=== PATIENT | male | born 1955 | race Caucasian/White ===

== ENCOUNTER 2019-11-01 12:47 | Day surgery (SDC) | payer BC ==
[2019-10-28 14:07] VITALS: BMI 28.5
[~2019-11-01 12:47] MED LIST: LACTATED RINGERS 1,000 ML IV SCH; SODIUM CHLORIDE 0.9% 1,000 ML IV SCH
[2019-11-01] MEDS ORDERED: SODIUM CHLORIDE 0.9% 1,000 ML IV ONE (13:32)
[2019-11-01] MEDS ORDERED: MIDAZOLAM 2 MG/2 ML VIAL ONE (14:47)
[2019-11-01] MEDS ORDERED: HEPARIN SODIUM,PORCINE 10,000 UNIT/ML 1 ML VIAL ONE (14:47)
[2019-11-01] MEDS ORDERED: PROPOFOL 10 MG/ML 20 ML VIAL IV ONE (14:47)
[2019-11-01] MEDS ORDERED: LIDOCAINE 1% INJ 10MG/ML (20 ML MDV) ONE ×2 (14:47→15:04)
[2019-11-01] MEDS ORDERED: PHENYLEPHRINE-0.9% NACL SYG 1 MG/10 ML SYRINGE ONE (14:47)
[2019-11-01] MEDS ORDERED: ISOPROTERENOL 250 MCG/1.25 ML SYR IV ONE (14:47)
[2019-11-01] MEDS ORDERED: SUCCINYLCHOLINE CHLORIDE 100 MG/5 ML SYR IV ONE (14:47)
[2019-11-01] MEDS ORDERED: fentaNYL (PF) 50 MCG/ML 2 ML AMP ONE (14:47)
[2019-11-01] MEDS ORDERED: HYDROmorphone (PF) 1 MG/ML ONE (14:47)
[2019-11-01] MEDS ORDERED: PROTAMINE SULFATE 10 MG/ML 5 ML VIAL IV ONE (14:47)
[2019-11-01] MEDS ORDERED: LIDOCAINE 1% INJ 10MG/ML (20 ML MDV) SQ ONE (15:33)
[2019-11-01] MEDS ORDERED: HEPARIN SOD,PORK IN 0.45% NACL 25,000 UNIT in 0.45% NACL 1 250ML.BAG IV ONE (15:45)
[2019-11-01] MEDS ORDERED: IOPAMIDOL-370 125ML BTL INJ ONE (16:38)
[2019-11-01] MEDS ORDERED: SODIUM CHLORIDE 0.9% 500 ML 500 ML IV ONE (17:00)
[2019-11-01] MEDS ORDERED: HYDROcodone/APAP 5-325MG 1 EACH TAB PO PRN (17:11)
[2019-11-01] MEDS ORDERED: ACETAMINOPHEN TAB 325 MG TAB PO PRN (17:11)
--- NOTE | 2019-11-01 17:28 | P.PCN ---
Preoperative Diagnosis: Diagnosis Atrial fibrillation, symptomatic, refractory to therapy Paroxysmal Failed sotalol Bradycardia with sotalol Result No left atrial appendage mass seen on intracardiac echo Successful pulmonary vein isolation of all veins using cryo-ablation Complete entrance block in all 4 veins confirmed No evidence for phrenic nerve injury Esophageal deflection YES Electrical cardioversion with a synchronized shock across the chest YES Procedure details Patient was brought to the EP lab in a fasting state. Written informed consent was obtained prior to the procedure. Procedure performed under general anesthesia After initial muscle relaxant use, muscle relaxants were not given thereafter in order to assess phrenic nerve during procedure. Patient prepped and draped as per protocol Full cryo-set up with standard preparation of the cryoablation tools done. Femoral Venous access obtained on the right and left groins Venous and arterial Sheaths placed. Diagnostic catheters for the high right atrium, phrenic nerve stimulation and pacing, His bundle, RV and coronary sinus placed Intracardiac echo catheter placed. Long sheath placed in the right atrium Left and right transseptal catheterization performed under intracardiac echo guidance. Intravenous heparin with aCT above 300 Later, catheter positioning and balloon positioning in the left atrium, under intracardiac echo guidance Diagnostic EP study with Drug infusion with high dose Isuprel Coronary sinus pacing and recording Baseline measurements: Sinus cycle length 794 ms, TN interval 142 ms, QRS 112 ms, QT interval 380 ms AH 89 ms and HV 45 ms Atrial pacing performed from the high right atrium and the coronary sinus RV pacing VA Wenckebach block 390 ms Burst stimulation from the high right atrium Burst stimulation from the coronary sinus, occasional atrial triplet induced no atrial fibrillation, following PVI Extra stimulation performed on Isuprel Transseptal catheterization performed RA pressure 12/5/9 LA pressure 16/4/10 Transseptal catheterization performed with standard sheath. The cryoablation sheath was then placed with an over the wire exchange without any acute complications. All 4 pulmonary veins were isolated in the following sequence: Left superior followed by left inferior followed by right superior followed by right inferior The cryo-ablation balloon was placed at the os of each vein 1.5 mL of IV dye was injected to confirm an occluded vein Goal during cryoablation was to achieve complete occlusion of the pulmonary vei n, achieve -30 degrees C at 30 seconds and achieve -40 degrees C at 60 seconds and a time to effect of less than 60-90 seconds, . If not the balloon was repositioned to obtain this result After completion of Cryoblation with durations from 180-240 seconds, entrance block was confirmed with the Attain circular catheter in a roving fashion around the antrum of the pulmonary veins Phrenic nerve pacing was performed from the SVC, right innominate vein area and diaphragm voltage was monitored. Diaphragmatic contractions were also monitored manually for strength of contraction. Parameter goals for each cryo freeze Complete occlusion of the appropriate vein -30 degrees C by 30 seconds -40 degrees C by 60 seconds Minimum between minus 40-55 degrees C Thaw time greater than 10 seconds Balloon visualized by intracardiac echo The esophagus was intubated. Esophageal Temperature monitoring with a CIRCA catheter formed. Esophageal deflection for hypothermia of the esophagus below 30 degrees C Left superior pulmonary vein Complete isolation, entrance block Left inferior pulmonary vein Complete isolation, entrance block Right superior pulmonary vein, during phrenic nerve pacing Complete isolation, entrance block Right inferior pulmonary vein, during phrenic nerve pacing Complete isolation, entrance block At the end of the procedure the Achieve catheter was once again used to check for entrance block Phrenic nerve stimulation was performed to confirm diaphragmatic stimulation the end of the procedure Cine fluoroscopy was performed at the very end of the procedure to confirm mov ement of both diaphragms with inspiration and expiration At the end of the procedure the patient was extubated Heparin was reversed Venous sheaths were removed and hemostasis assured Procedures performed (PVI - CRYO Ablation) Diagnostic EP study CS pacing and recording Left and right transseptal catheterization Catheter the mapping of the tachycardia (NOT 3D mapping) Intracardiac echocardiography Pulmonary vein isolation with transseptal and comprehensive EPS, [id number] Drug Infusion [id number]
--- NOTE | 2019-11-01 17:30 | P.PRLE ---
RE: Arnol Gonzalez Dear Dr. Keyla Ambrose underwent cryoablation of the pulmonary veins successfully. All 4 pulmonary veins were completely isolated Thereafter a detailed EP study is performed on high dose Isuprel No sustained or nonsustained atrial fibrillation induced He has a history of sick sinus syndrome and therefore I'm reducing the dose of sotalol to 40 mg twice daily and hopefully in the next 6-8 weeks. At completely He should continue ELIQUIS for a minimum of 3 months If he does have prediabetes or diabetes and mild CAD then in view of his age his GREGORY VASC score is at least 2 and in that case he should continue ELIQUIS lifelong Thank you for entrusting me with the care of the patient Warm regards Sincerely Vignesh Porter
[2019-11-01] MEDS ORDERED: HYDROmorphone 0.5 MG/0.5 ML SYRINGE IVP ONE (18:05)
[2019-11-01] MEDS: ACETAMINOPHEN IV (For NPO) 1,000 MG in EMPTY BAG 1 BAG IVPB ONE ×2 (18:05→18:20)
[2019-11-01] MEDS: SOTALOL 80 MG TAB PO SCH (20:08)
[2019-11-01] MEDS: APIXABAN 5 MG TAB PO SCH (20:08)
[2019-11-02 08:09] VITALS: BP 131/82; PULSE 70; RESP 18; TEMP 97.6
[2019-11-02] MEDS: SOTALOL 80 MG TAB PO SCH (08:10)
[2019-11-02] MEDS: APIXABAN 5 MG TAB PO SCH (08:10)
[2019-11-02 08:17] LABS: ALT 29 U/L (4-49); AST 73 U/L (17-59); African American GFR (CKD) >90 (>60 ml/min/1.73 sqM); Albumin 3.6 g/dL (3.5-5.0); Alkaline Phosphatase 45 U/L (38-126); Anion Gap 5 mmol/L; Blood Urea Nitrogen 18 mg/dL (9-20); Calcium 8.5 mg/dL (8.4-10.2); Carbon Dioxide 24 mmol/L (22-30); Chloride 105 mmol/L (98-107); Cholesterol 122 mg/dL (<200); Glucose 120 mg/dL (74-99); HDL Cholesterol 39 mg/dL (40-60); LDL Cholesterol,Calculated 60 mg/dL (0-99); Non-African American GFR(CKD) >90 (>60 ml/min/1.73 sqM); Potassium 4.3 mmol/L (3.5-5.1); Sodium 134 mmol/L (137-145); Total Bilirubin 1.2 mg/dL (0.2-1.3); Triglycerides 116 mg/dL (<150)
[2019-11-02] MEDS ORDERED: ATORVASTATIN 10 MG TAB PO SCH (09:00)
--- NOTE | 2019-11-02 11:53 | P.DS ---
Providers Attending physician: Vignesh Porter Primary care physician: [facility] Course: This is a pleasant 64-year-old male who came to the hospital secondary to symptomatic refractory to therapy atrial fibrillation failed sotalol and outpatient setting. He underwent a diagnostic EP study with cryoablation. His A. fib was rendered noninducible. He is seen and examined resting comfortably in no acute distress. He has no symptoms of chest discomfort, shortness of luís ath, dizziness or palpitations. Morning EKG reveals sinus mechanism with no ischemic abnormalities. Bilateral femoral venous access sites are clean, dry with no evidence of bleeding, hematoma or oozing. Sutures have been removed by the nursing staff. Blood pressure 131/82 heart rate 70 afebrile maintaining oxygen saturation on room air. Sotalol will be decreased to 40 mg twice a day on discharge. Follow-up in the office with Dr. Craft in one week. Patient Condition at Discharge: Stable Plan - Discharge Summary Discharge Rx Participant: No New Discharge Prescriptions: New Sotalol [Betapace] 40 mg PO ONCE #90 tablet Continue Apixaban [Eliquis] 5 mg PO BID Rosuvastatin Calcium [Crestor] 5 mg PO DAILY Discontinued Sotalol [Betapace] 80 mg PO DAILY Discharge Medication List Apixaban [Eliquis] 5 mg PO BID 10/28/19 [History] Rosuvastatin Calcium [Crestor] 5 mg PO DAILY 10/28/19 [History] Sotalol [Betapace] 40 mg PO ONCE #90 tablet 11/01/19 [Rx] Follow up Appointment(s)/Referral(s): Vignesh Porter MD [STAFF PHYSICIAN] - 11/12/19 3:45 pm (Follow-up with Dr. Porter/Zabrina Gongora/Rashida Borges. Follow-up next week) Patient Instructions/Handouts: Cardiac Ablation (DC), Cardiac Ablation (IP) Activity/Diet/Wound Care/Special Instructions: Post EP study - Ablation instructions 1. Keep access sites dry for 2 days. 2. No heavy lifting or straining for 2 days. 3. Avoid bending the hips repeatedly for 2 days. 4. You may go up and down stairs slowly Call if the following is noted 1. Bleeding, increasing swelling or pain at the access sites. 2. Increasing chest discomfort, especially upon taking a deep breath. 3. Increasing shortness of breath, at rest or with exertion. 4. Undue cough / phlegm 5. Difficulty or pain while swallowing. 6. Pain or change in color in the extremities. 7. Fever, chills, rigors. 8. Increasing headache or neurologic symptoms. 9. Dizziness, fainting, palpitations Continue ELIQUIS 5 mg twice daily Reduce sotalol to 40 mg twice daily Continue rosuvastatin
[2019-11-02 12:50] LABS: Hemoglobin A1C 6.6 % (4.0-6.0)
== END 2019-11-02 16:25 ==
LOC: CATHEP 12:47 → 3NCARDOBS 17:10 → CATHEP 11-02 16:25
PROVIDERS: ATTEND Internal Medicine Clinical Cardiac Electrophysiology
DX: I48.0 Paroxysmal atrial fibrillation (principal); I49.5 Sick sinus syndrome; E78.5 Hyperlipidemia, unspecified; Z79.01 Long term (current) use of anticoagulants; Z79.899 Other long term (current) drug therapy; Z88.8 Allergy status to other drugs, medicaments and biological substances; Z98.890 Other specified postprocedural states
CPT/HCPCS: 85347 ×2; 93623; 93662; 93609; 93656; 80061; 80053; 84443; 84132; 83036; C1759; C1769 ×4; C1894 ×2; C1730 ×2; C1893; C1733; C1766; J2001; J0131; J1170; Q9967; J1644